=== PATIENT | male | born 1965 | race Caucasian/White ===

== ENCOUNTER 2020-10-21 16:24 | Emergency (ER) | payer OTHER ==
[2020-10-21 16:52] LABS: BASOPHIL 0.7 % (0-2); EOSINOPHIL 3.3 % (0-5); HCT 42.3 % (42.0-52.0); HGB 14.5 g/dl (13.2-18.0); LYMPHOCYTE 45.7 % (15-48); MCH 30.3 pg (25.0-31.0); MCHC 34.3 g/dL (32.0-36.0); MCV 88.5 fL (78.0-100.0); MPV 9.5 fL (6.0-9.5); NEUTROPHIL 42.1 % (41-80); NRBC 0; PLT 242 K/uL (150-400); RBC 4.78 M/uL (4.70-6.00); RDW 12.9 % (11.5-14.0); WBC 8.8 K/uL (4.0-10.5)
[2020-10-21 17:00] LABS: ALBUMIN 4.1 g/dL (3.4-5.0); BILIRUBIN - TOTAL 0.5 mg/dL (0.2-1.0); BUN/CREAT RATIO (CALC) 15.9 RATIO; CREATININE 0.82 mg/dL (0.67-1.17); GLOBULIN (CALCULATION) 3.3 g/dL; POTASSIUM 3.7 mmol/L (3.5-5.1); TOTAL PROTEIN 7.4 g/dL (6.4-8.2)
== END 2020-10-21 20:48 | disposition home or self-care (01) ==
LOC: FER 16:24
PROVIDERS: Emergency Medicine
DX: R07.9 Chest pain, unspecified (principal); R20.2 Paresthesia of skin; R06.02 Shortness of breath; R42 Dizziness and giddiness; R00.0 Tachycardia, unspecified; E11.9 Type 2 diabetes mellitus without complications; I10 Essential (primary) hypertension; E78.5 Hyperlipidemia, unspecified; Z87.891 Personal history of nicotine dependence
CPT/HCPCS: 36415; 71045; 80053; 84484; 85025; 93005; J2060